=== PATIENT | male | born 1985 | race African-American/Black ===

== ENCOUNTER 2019-07-10 23:52 | Emergency (ER) | payer SELFPAY ==
[~2019-07-10] VITALS: Ht 190.5 cm; Wt 122.5 kg
--- NOTE | 2019-07-11 00:15 | NUR ---
PT CAME TO ER W/ FRIEND C/O AUDITORY AND VISUAL HALLUCINATION SINCE 3x DAYS AGO. PATIENT STATES THAT YESTERDAY HE SAW THAT PEOPLE ARE GOING TO ATTACK HIM. TODAY, PT STATES THAT THERE IS A LITTLE GIRL OUT TO FLIRT WITH HIM AND PLAYING WITH HIS GENITALS. DENIES DRUG USE. AAOX4. NO SOB. BREATHING EVENLY AND UNLABORED. CONNECTED TO MONITOR.
[2019-07-11] MEDS ORDERED: OLANZAPINE 5 MG TABLET ONE (00:27)
[2019-07-11 00:29] LABS: APPEARANCE,URINE Clear (CLEAR); BILIRUBIN,URINE SMALL (NEGATIVE); BLOOD, URINE Trace-intact Ery/uL (NEGATIVE); COLOR,URINE Yellow (YELLOW); KETONES,URINE 80 (NEGATIVE); LEUKOCYTE ESTERASE ,URINE Negative (NEGATIVE); NITRITE, URINE Negative (NEGATIVE); PH,URINE 5.5 (5.0-8.0); PROTEIN,URINE 30 mg/dl (NEGATIVE); UGLUCOSE Negative (NEGATIVE); UROBILINOGEN,URINE 0.2 EU/dL (0.2)
[2019-07-11] MEDS ORDERED: OLANZAPINE 5 MG TABLET PO ONE (00:30)
[2019-07-11 00:39] LABS: BASOPHILS % (AUTO) 0.5 % (0.0-2.0); EOSINOPHILS % (AUTO) 0.4 % (0.0-6.0); HEMATOCRIT 35 % (39-51); HEMOGLOBIN 11.1 g/dL (13.5-17.5); LYMPHOCYTES # (AUTO) 0.5 /CMM (0.8-4.8); LYMPHOCYTES % (AUTO) 9.6 % (20.0-44.0); MEAN CORPUSCULAR HGB CONC 32 g/dl (31.0-36.0); MEAN CORPUSCULAR VOLUME 79 fL (80-96); MONOCYTES # (AUTO) 0.5 /CMM (0.1-1.30); MONOCYTES % (AUTO) 10.3 % (2.0-12.0); NEUTROPHILS % (AUTO) 79.2 % (43.0-81.0); PLATELET COUNT (AUTO) 206 /CMM (150-450); RED BLOOD CELL COUNT(AUTO) 4.42 MIL/uL (4.5-6.0); WHITE BLOOD COUNT (AUTO) 5.1 K/uL (4.3-11.0)
[2019-07-11 00:48] LABS: CARBON DIOXIDE 24 mmol/L (21-32); CHLORIDE 99 mmol/L (98-107); CREATININE 1.1 mg/dL (0.6-1.3); GLUCOSE 89 mg/dL (74-106); POTASSIUM 3.1 mmol/L (3.5-5.1); SODIUM SERUM 137 mmol/L (136-145); UREA NITROGEN, BLOOD 11 mg/dL (7-18)
[2019-07-11 00:54] LABS: ALANINE AMINOTRANSFERASE 108 U/L (12-78); ALBUMIN 3.9 g/dL (3.4-5.0); ALCOHOL, BLOOD < 3 mg/dL (0-0); ALKALINE PHOSPHATASE 84 U/L (46-116); ASPARTATE AMINOTRANSFERASE 163 U/L (15-37); BILIRUBIN,DIRECT 0.6 mg/dL (0.0-0.2); BILIRUBIN,TOTAL 1.1 mg/dL (0.2-1.0); TOTAL PROTEIN, SERUM 8.5 g/dL (6.4-8.2)
[2019-07-11 01:03] LABS: ACETAMINOPHEN 0 ug/ml (10-30); SALICYLATE < 0.2 mg/dL (2.8-20.0)
--- NOTE | 2019-07-11 02:02 | NUR ---
PATIENT IS ASLEEP W/ FRIEND AT BEDSIDE. PATIENT IS COMFORTABLE. EASILY AROUSED THROUGH TACTILE AND VERBAL STIMULI. CONNECTED TO MONITOR. PATIENT IS PLACED IN OBSERVATION. SITTER IN FRONT OF BED
--- NOTE | 2019-07-11 02:09 | NUR ---
ART, MENTAL HEALTH VASC TECH, AT BEDSIDE
[2019-07-11 02:25] VITALS: BP 141/75
--- NOTE | 2019-07-11 02:25 | NUR ---
Patient discharged to home in stable condition. Written and verbal after care instructions given. Patient verbalizes understanding of instruction.
[2019-07-11 03:27] LABS: BACTERIA,URINE Few /HPF (None Seen); SQUAMOUS EPITHELIAL CELL,UR Rare /HPF (None Seen)
== END 2019-07-11 02:25 | disposition home or self-care (01) ==
LOC: ER 07-11 00:01
DX: F29 Unspecified psychosis not due to a substance or known physiological condition (principal); I10 Essential (primary) hypertension; F10.10 Alcohol abuse, uncomplicated; Y90.0 Blood alcohol level of less than 20 mg/100 ml; Z88.8 Allergy status to other drugs, medicaments and biological substances
CPT/HCPCS: 36415; 80048; 80076; 80305; 80307; 80329; 81001; 85025; 99284; G0480; 81000-TC

== ENCOUNTER 2019-07-12 03:59 | Emergency (ER) | payer SELFPAY ==
[~2019-07-12] VITALS: Ht 190.5 cm; Wt 122.5 kg
[2019-07-12] MEDS ORDERED: OLANZAPINE 5 MG TABLET ONE (04:29)
[2019-07-12] MEDS ORDERED: OLANZAPINE 5 MG TABLET PO ONE (04:30)
--- NOTE | 2019-07-12 04:30 | NUR ---
PT PRESENTED TO THE ER WITH A C/O AUDIBLE AND VISUAL HALLUCINATIONS OF DOGS GROWLING AT HIM, BITTING HIS LEGS, AND BARKING. PT IS ON THE MONITOR AND CONTINUOUS PULSE OX. PT DENIES SI/HI AT THIS TIME. PT STATED THAT HE TOOK HIS ZYPREXA LAST NIGHT BEFORE HE WENT TO BED. WILL CONTINUE TO MONITOR THE PT.
[2019-07-12 04:48] LABS: APPEARANCE,URINE Clear (CLEAR); BILIRUBIN,URINE SMALL (NEGATIVE); BLOOD, URINE Negative Ery/uL (NEGATIVE); COLOR,URINE Yellow (YELLOW); KETONES,URINE 40 (NEGATIVE); LEUKOCYTE ESTERASE ,URINE Negative (NEGATIVE); NITRITE, URINE Negative (NEGATIVE); PROTEIN,URINE 30 mg/dl (NEGATIVE); UGLUCOSE Negative (NEGATIVE); UROBILINOGEN,URINE 0.2 EU/dL (0.2)
[2019-07-12 04:50] LABS: HEMOGLOBIN 11.5 g/dL (13.5-17.5); MONOCYTES # (AUTO) 0.6 /CMM (0.1-1.30); WHITE BLOOD COUNT (AUTO) 3.8 K/uL (4.3-11.0)
[2019-07-12 04:55] LABS: EOSINOPHILS % (AUTO) 1.8 % (0.0-6.0); HEMATOCRIT 36 % (39-51); LYMPHOCYTES % (AUTO) 25.3 % (20.0-44.0); MEAN CORPUSCULAR HGB CONC 32 g/dl (31.0-36.0); MEAN CORPUSCULAR VOLUME 79 fL (80-96); NEUTROPHILS # (AUTO) 2.1 /CMM (1.8-8.9); NEUTROPHILS % (AUTO) 55.9 % (43.0-81.0); PLATELET COUNT (AUTO) 221 /CMM (150-450); RED BLOOD CELL COUNT(AUTO) 4.48 MIL/uL (4.5-6.0)
--- NOTE | 2019-07-12 05:00 | NUR ---
PT REC'D 2 MORE WARM BLANKETS AND THE OVERHEAD LIGHTS WERE TURNED OFF SO THAT THE PT COULD REST.
[2019-07-12 05:10] LABS: ACETAMINOPHEN 0 ug/ml (10-30); ALANINE AMINOTRANSFERASE 122 U/L (12-78); ALBUMIN 3.7 g/dL (3.4-5.0); ALCOHOL, BLOOD 12 mg/dL (0-0); ALKALINE PHOSPHATASE 78 U/L (46-116); ASPARTATE AMINOTRANSFERASE 170 U/L (15-37); BILIRUBIN,DIRECT 0.4 mg/dL (0.0-0.2); BILIRUBIN,TOTAL 0.7 mg/dL (0.2-1.0); CALCIUM, SERUM 8.9 mg/dL (8.5-10.1); CARBON DIOXIDE 29 mmol/L (21-32); CHLORIDE 101 mmol/L (98-107); CREATININE 1.1 mg/dL (0.6-1.3); GLUCOSE 93 mg/dL (74-106); SALICYLATE < 0.2 mg/dL (2.8-20.0); SODIUM SERUM 140 mmol/L (136-145); TOTAL PROTEIN, SERUM 8.1 g/dL (6.4-8.2); UREA NITROGEN, BLOOD 7 mg/dL (7-18)
[2019-07-12 05:11] LABS: POTASSIUM 2.8 mmol/L (3.5-5.1)
[2019-07-12 05:11] LABS: BACTERIA,URINE Few /HPF (None Seen); RBC,URINE 0-2 /HPF (0-2); SQUAMOUS EPITHELIAL CELL,UR Rare /HPF (None Seen)
--- NOTE | 2019-07-12 05:13 | NUR ---
LAB CALLED RE: PT'S K+ =2.8.
[2019-07-12] MEDS ORDERED: POTASSIUM CHLORIDE 20 MEQ TAB.PRT.SR PO ONE ×2 (05:22→05:30)
--- NOTE | 2019-07-12 05:28 | NUR ---
PT APPEARS TO BE SLEEPING SOUNDLY, BUT IS EASILY AROUSED. PT STATED THAT THE MEDICATION HE REC'D EARLIER IS WORKING.
--- NOTE | 2019-07-12 05:30 | NUR ---
PT REC'D MEDICATION ORDERED.
[2019-07-12 05:45] LABS: EOSINOPHILS % (MANUAL) 7 % (0-4); LYMPHOCYTES % (MANUAL) 42 % (16-48); MONOCYTES % (MANUAL) 1 % (0-11.0); NEUTROPHILS % (MANUAL) 50 (42-76)
--- NOTE | 2019-07-12 06:35 | NUR ---
PT APPEARS TO BE SLEEPING SOUNDLY WITH NO S/S OF PAIN OR DISTRESS. VSS.
--- NOTE | 2019-07-12 07:14 | NUR ---
PT IS AWAKE AND TALKING ON THE PHONE. RESP ARE EVEN AND UNLABORED. PT APPEARS CALM AND IS C/O NOT BEING ABLE TO SLEEP.
--- NOTE | 2019-07-12 08:04 | NUR ---
Patient discharged to home in stable condition. Written and verbal after care instructions given. Patient verbalizes understanding of instruction.
[2019-07-12 08:05] VITALS: BP 108/51
== END 2019-07-12 08:05 | disposition home or self-care (01) ==
LOC: ER 04:01
DX: F29 Unspecified psychosis not due to a substance or known physiological condition (principal); I10 Essential (primary) hypertension; F10.10 Alcohol abuse, uncomplicated; Y90.0 Blood alcohol level of less than 20 mg/100 ml; Z88.8 Allergy status to other drugs, medicaments and biological substances
CPT/HCPCS: 36415; 80048; 80076; 80305; 80307; 80329; 81001; 85025; 87086; 99284; G0480; 81000-TC

== ENCOUNTER 2020-11-19 11:10 | Outpatient (CLI) | payer OTHER | END 2020-11-19 23:59 | disposition home or self-care (01) | LOC: MSC 11:10 | PROVIDERS: ATTEND Internal Medicine | DX: N17.9 Acute kidney failure, unspecified (principal); M54.5 Low back pain; I10 Essential (primary) hypertension; M10.9 Gout, unspecified; I82.409 Acute embolism and thrombosis of unspecified deep veins of unspecified lower extremity; J04.0 Acute laryngitis; L65.9 Nonscarring hair loss, unspecified; S61.501A Unspecified open wound of right wrist, initial encounter; Z79.01 Long term (current) use of anticoagulants; Z79.899 Other long term (current) drug therapy ==

== ENCOUNTER 2020-12-19 10:35 | Outpatient (CLI) | payer OTHER | END 2020-12-19 23:59 | disposition home or self-care (01) | LOC: MSC 10:35 | PROVIDERS: ATTEND Internal Medicine | DX: M54.16 Radiculopathy, lumbar region (principal); R20.2 Paresthesia of skin; R94.6 Abnormal results of thyroid function studies; L65.9 Nonscarring hair loss, unspecified; I10 Essential (primary) hypertension; I82.409 Acute embolism and thrombosis of unspecified deep veins of unspecified lower extremity; Z79.01 Long term (current) use of anticoagulants; M10.9 Gout, unspecified; J04.0 Acute laryngitis; Z79.899 Other long term (current) drug therapy ==

== ENCOUNTER 2020-12-24 11:30 | Outpatient (CLI) | payer OTHER | END 2020-12-24 23:59 | disposition home or self-care (01) | LOC: MSC 11:30 | PROVIDERS: ATTEND Internal Medicine | DX: Z04.89 Encounter for examination and observation for other specified reasons (principal); M54.5 Low back pain; R20.0 Anesthesia of skin; R94.6 Abnormal results of thyroid function studies; I10 Essential (primary) hypertension; I82.409 Acute embolism and thrombosis of unspecified deep veins of unspecified lower extremity; Z79.01 Long term (current) use of anticoagulants; M10.9 Gout, unspecified; J04.0 Acute laryngitis ==

== ENCOUNTER → 2021-01-17 | Outpatient (CLI) | payer OTHER | END | disposition home or self-care (01) | LOC: MSC 14:00 | PROVIDERS: ATTEND Internal Medicine | DX: Z01.818 Encounter for other preprocedural examination (principal); J04.0 Acute laryngitis; M54.5 Low back pain; R20.0 Anesthesia of skin; R94.6 Abnormal results of thyroid function studies; I10 Essential (primary) hypertension; I82.409 Acute embolism and thrombosis of unspecified deep veins of unspecified lower extremity; Z79.01 Long term (current) use of anticoagulants; M10.9 Gout, unspecified; L65.9 Nonscarring hair loss, unspecified; Z76.0 Encounter for issue of repeat prescription ==

== ENCOUNTER 2021-06-04 20:27 | Emergency (ER) | payer OTHER ==
[~2021-06-04] VITALS: Ht 188 cm; Wt 95.3 kg
--- NOTE | 2021-06-04 20:45 | NUR ---
PATIENT BIBRA [id number] FROM APARTMENT C/O BIZARRE BEHAVIOR, BANGING ON DOORS AND RUNNING AROUND SCARING AT TENANTS. [employer] AT BEDSIDE. PATIENT NOT ANSWERING QUESTIONS AT THIS TIME. PATIENT IS A/O, RR EVEN AND UNLABORED, NO SOB NOTED. PATIENT CONNECETED TO CARDIAC AND POX MONITOR.
[2021-06-04] MEDS ORDERED: OLANZAPINE 10 MG VIAL IM ONE ×2 (21:10→21:30)
--- NOTE | 2021-06-04 21:33 | NUR ---
URINE COLLECETED AND SENT TO LAB
[2021-06-04 21:49] LABS: BILIRUBIN,URINE Negative (NEGATIVE); COLOR,URINE YELLOW (YELLOW); LEUKOCYTE ESTERASE ,URINE Negative (NEGATIVE); NITRITE, URINE Negative (NEGATIVE); PH,URINE 5.5 (5.0-8.0); PROTEIN,URINE 100 mg/dl (NEGATIVE); UGLUCOSE Negative (NEGATIVE); UROBILINOGEN,URINE 0.2 EU/dL (0.2)
[2021-06-04 21:53] LABS: BACTERIA,URINE Rare /HPF (None Seen); SQUAMOUS EPITHELIAL CELL,UR Few /HPF (None Seen); WBC,URINE NONE SEEN /HPF (0-3)
[2021-06-04 22:39] LABS: BASOPHILS # (AUTO) 0.1 K/uL (0.0-0.2); BASOPHILS % (AUTO) 0.9 % (0.0-2.0); EOSINOPHILS % (AUTO) 0.1 % (0.0-6.0); HEMATOCRIT 38 % (39-51); HEMOGLOBIN 12.7 g/dL (13.5-17.5); LYMPHOCYTES # (AUTO) 0.3 K/uL (0.8-4.8); LYMPHOCYTES % (AUTO) 2.3 % (20.0-44.0); MEAN CORPUSCULAR HGB CONC 33 g/dl (31.0-36.0); MEAN CORPUSCULAR VOLUME 95 fL (80-96); MONOCYTES # (AUTO) 0.3 K/uL (0.1-1.30); MONOCYTES % (AUTO) 3.1 % (2.0-12.0); NEUTROPHILS # (AUTO) 10.6 K/uL (1.8-8.9); NEUTROPHILS % (AUTO) 93.6 % (43.0-81.0); PLATELET COUNT (AUTO) 184 K/uL (150-450); RED BLOOD CELL COUNT(AUTO) 4.07 MIL/uL (4.5-6.0); WHITE BLOOD COUNT (AUTO) 11.3 K/uL (4.3-11.0)
[2021-06-04 23:05] LABS: CALCIUM, SERUM 8.8 mg/dL (8.5-10.1); CARBON DIOXIDE 23 mmol/L (21-32); CHLORIDE 100 mmol/L (98-107); CREATININE 1.5 mg/dL (0.6-1.3); GLUCOSE 148 mg/dL (74-106); POTASSIUM 4.8 mmol/L (3.5-5.1); SODIUM SERUM 137 mmol/L (136-145); UREA NITROGEN, BLOOD 19 mg/dL (7-18)
[2021-06-04 23:13] LABS: ALANINE AMINOTRANSFERASE 380 U/L (12-78); ALBUMIN 3.6 g/dL (3.4-5.0); ALKALINE PHOSPHATASE 91 U/L (46-116); ASPARTATE AMINOTRANSFERASE 578 U/L (15-37); BILIRUBIN,DIRECT 0.5 mg/dL (0.0-0.2); BILIRUBIN,TOTAL 1.8 mg/dL (0.2-1.0); TOTAL PROTEIN, SERUM 7.6 g/dL (6.4-8.2)
[2021-06-04 23:14] LABS: ACETAMINOPHEN < 2 ug/ml (10-30); ALCOHOL, BLOOD < 3 mg/dL (0-0)
[2021-06-04] MEDS ORDERED: IV NS 0.9% 1,000 ML BAG IV ONE (23:30)
--- NOTE | 2021-06-05 03:50 | NUR ---
Patient discharged to home in stable condition. Written and verbal after care instructions given. Patient verbalizes understanding of instruction.
[2021-06-05 03:51] VITALS: BP 126/61
== END 2021-06-05 03:51 | disposition home or self-care (01) ==
LOC: ER 20:32
DX: R46.2 Strange and inexplicable behavior (principal); E86.0 Dehydration; I10 Essential (primary) hypertension; Z20.822 Contact with and (suspected) exposure to COVID-19; Z59.00 Homelessness unspecified
CPT/HCPCS: 36415; 80048; 80076; 80143; 80307; 80320; 81001; 85025; 87426; 96360; 96372; 99285; C9803; J3490; J7030; G0480

== ENCOUNTER 2021-09-27 08:57 | Emergency (ER) | payer OTHER ==
[~2021-09-27] VITALS: Ht 190.5 cm; Wt 92.1 kg
[2021-09-27 08:57] VITALS: BP 151/71
[2021-09-27] MEDS ORDERED: ONDANSETRON HCL/PF 4 MG/2 ML VIAL ONE (09:39)
[2021-09-27] MEDS: ONDANSETRON HCL/PF 4 MG/2 ML VIAL IVP ONE (09:41)
[2021-09-27] MEDS: IV NS 0.9% 1,000 ML BAG IV ONE (09:45)
[2021-09-27 10:38] LABS: CALCIUM, SERUM 9.4 mg/dL (8.5-10.1); CREATININE 1.5 mg/dL (0.6-1.3); POTASSIUM 4.2 mmol/L (3.5-5.1)
[2021-09-27 10:42] LABS: ALBUMIN 4.4 g/dL (3.4-5.0); BILIRUBIN,DIRECT 0.6 mg/dL (0.0-0.2)
[2021-09-27 10:48] LABS: BASOPHILS % (AUTO) 0.3 % (0.0-2.0); HEMATOCRIT 42 % (39-51); HEMOGLOBIN 14.4 g/dL (13.5-17.5); LYMPHOCYTES # (AUTO) 0.4 K/uL (0.8-4.8); LYMPHOCYTES % (AUTO) 6.9 % (20.0-44.0); MEAN CORPUSCULAR HGB CONC 34 g/dl (31.0-36.0); MEAN CORPUSCULAR VOLUME 94 fL (80-96); MONOCYTES # (AUTO) 0.8 K/uL (0.1-1.30); MONOCYTES % (AUTO) 13.7 % (2.0-12.0); NEUTROPHILS # (AUTO) 4.9 K/uL (1.8-8.9); NEUTROPHILS % (AUTO) 79.1 % (43.0-81.0); PLATELET COUNT (AUTO) 149 K/uL (150-450); RED BLOOD CELL COUNT(AUTO) 4.49 MIL/uL (4.5-6.0); WHITE BLOOD COUNT (AUTO) 6.2 K/uL (4.3-11.0)
[2021-09-27 11:02] LABS: TOTAL PROTEIN, SERUM 8.8 g/dL (6.4-8.2)
[2021-09-27 11:12] LABS: BILIRUBIN,TOTAL 0.5 mg/dL (0.2-1.0)
== END 2021-09-27 09:58 | disposition left against medical advice (07) ==
LOC: ER 08:59
DX: R11.2 Nausea with vomiting, unspecified (principal); I10 Essential (primary) hypertension; Z88.8 Allergy status to other drugs, medicaments and biological substances
CPT/HCPCS: 36415; 80048; 80076; 83690; 85025; 96374; 99283; J2405; J7030